=== PATIENT | male | born 1965 | race Caucasian/White ===

== ENCOUNTER 2016-11-15 14:55 | Observation (INO) | payer SELFPAY ==
--- NOTE | ~2016-11-15 | HP ---
History And Physical [id number] [place]. [address] NAME: PATRICK BARRIGA : 61 STATUS : ADM Braulio PAT#: [id number] AGE: 50 ADM/REG DATE : 11/15/16 MR#: [id number] REPORT SERV DATE: 11/16/16 DICTATED BY: LOVELY SLADE DATE: 11/16/16 REPORT STATUS : Draft TRANSCRIBED BY: MODL DATE: 11/16/16 DATE OF ADMISSION: 11/15/2016 CHIEF COMPLAINT: Chest pain. HISTORY OF PRESENT ILLNESS: This is a 50-year-old male with history of hypertension, untreated hyperlipidemia, obstructive sleep apnea, and bipolar disorder, who states a several week history of midsternal epigastric chest pain. He thought it was reflux at first and began taking Zantac with no specific relief. He states it feels like "someone grabbing me in my insides" with most intense spells lasting minutes to hours. There was no relation to exertion and it is not pleuritic in nature. The patient states the pain radiates "straight through to my back." He came to our emergency department for further evaluation around 1445 hours yesterday and was given a full dose aspirin and GI cocktail with no significant relief. He states the pain is typically at 2/10 in severity where it is now, but had a worse episode around 00:11 p.m. last night, where he states it was 10/10 in severity. This was mostly alleviated with IV morphine. The patient also did receive some nitroglycerin with no significant relief. The patient denies any recent fever, cough, or chill, but does states he was having some hot flashes yesterday. He also reports a dry cough that has been going on for several months and is nonproductive. He also states dizziness and unsteadiness with walking. Denies palpitations, lower extremity edema, or presyncope. PAST MEDICAL HISTORY: 1. 48-hour Holter monitor and echocardiogram performed in 2014 with symptoms of palpitations. Seen by Dr. Latif. Testing normal. 2. Hypertension. 3. Depression. 4. Obesity with BMI of 32. 5. Hypothyroidism. 6. GERD. 7. Asthma. 8. Bipolar disorder, under the care of Dr. Piña at [facility]. 9. Obstructive sleep apnea, compliant with CPAP therapy. 10.Hyperlipidemia, not currently treated. SURGICAL HISTORY: Laparoscopic cholecystectomy in 1994, appendectomy in 1999, left knee scope in , tonsillectomy as a child. HOME MEDICATIONS: Albuterol 2 puffs inhaled q.4h p.r.n., Celexa 20 mg daily, hydrochlorothiazide 25 mg daily, Lamictal 150 b.i.d., levothyroxine 100 mcg daily, lisinopril 20 daily, Aleve 440 mg daily p.r.n. pain, Zantac 300 at bedtime, trazodone 300 at bedtime. ALLERGIES: TO COMPAZINE CAUSES SEIZURES AND SHAKING, REGLAN CAUSES TACHYCARDIA. SOCIAL HISTORY: The patient is currently from his and lives with his parents History And Physical [address] [address] NAME: PATRICK BARRIGA : [birth year] STATUS : ADM Braulio PAT#: [id number] AGE: 50 ADM/REG DATE : 11/15/16 MR#: [id number] REPORT SERV DATE: 11/16/16 DICTATED BY: LOVELY SLADE DATE: 11/16/16 REPORT STATUS : Draft TRANSCRIBED BY: ALEXIS DATE: 11/16/16 in [facility]. He is currently unemployed, formerly employed at [employer]. Denies history of smoking, alcohol use, or illicit drug use. FAMILY HISTORY: Negative for premature cardiovascular disease among his first degree relatives. REVIEW OF SYSTEMS: The patient also states several week history of dyspnea on exertion. No orthopnea or PND. All other review of systems negative except as indicated above. PHYSICAL EXAMINATION: VITAL SIGNS: Blood pressure 138/80, heart rate 70, temperature 98.2, pulse oximetry 94% room air, BMI 32.4. GENERAL: Well developed, well nourished, in no acute distress HEENT: Anicteric. Normal EOM. Head normocephalic. PERRLA, no xanthelasma. NECK: Supple. No JVD. Carotids normal without bruits. LUNGS: Clear to auscultation bilaterally anterior and posterior. Respirations even and unlabored. CARDIAC: S1, S2 regular rate and rhythm. No murmurs, rubs, or gallops. No chest wall tenderness. ABDOMEN: There is some discomfort to palpation to the epigastric area. Otherwise, abdomen is soft, and nontender with active bowel sounds. No organomegaly, abdominal bruits, or masses appreciated. EXTREMITIES: No peripheral edema. DP/PT and radial pulses palpable bilaterally. No clubbing or cyanosis. SKIN: Warm and dry. Normal turgor. No pallor or cyanosis. MUSCULOSKELETAL: Moving all extremities x4. Normal muscle strength. NEURO/PSYCH: Alert and oriented with appropriate affect. LABORATORY DATA: White blood count 6.2, hemoglobin 16.1, hematocrit 44.9. Sodium 139, potassium 3.5, BUN 18, creatinine 1.2. Troponin less than 0.02 x3 sets. EKGs interpreted by myself indicates normal sinus rhythm with possible inferior Q-waves on five separate EKGs. No significant change when compared to historic EKG from July 2016. Chest x-ray reveals no acute cardiopulmonary abnormalities. ASSESSMENT AND PLAN: 1. Substernal chest pain with also some epigastric qualities. Cardiovascular risk factors include hypertension and hyperlipidemia. He has been observed overnight in the Chest Pain Observation Unit and is negative for acute coronary syndrome. Recommend proceeding with a nuclear stress test today. If this is low risk, we will plan to discharge the patient home with a proton pump inhibitor and establish followup with [facility] if the patient does not currently have a primary care physician. Any indication of ischemia on stress testing, we will plan to have the patient follow up with Cardiology or proceed with cardiac catheterization. 2. Dizziness, the patient states unsteadiness with walking. This will be evaluated outpatient on treadmill for stress testing today. There were no events on tele suggestive of any arrhythmias. History And Physical [address] [address] NAME: PATRICK BARRIGA : 61 STATUS : ADM Braulio PAT#: [id number] AGE: 50 ADM/REG DATE : 11/15/16 MR#: [id number] REPORT SERV DATE: 11/16/16 DICTATED BY: LOVELY SLADE DATE: 11/16/16 REPORT STATUS : Draft TRANSCRIBED BY: ALEXIS DATE: 11/16/16 3. Hypertension with history of three to four month cough, that is dry. The patient is on lisinopril at the time that he was started unless may correlate with his symptoms. We will discontinue this on discharge and change him to losartan 50 mg daily. 4. Mixed hyperlipidemia. Follow up with primary care physician. 5. Gastroesophageal reflux disease. Plan to start on PPI on discharge. 6. Hypothyroidism. We will check a TSH and T4 since he is on replacement therapy and has been having some dizziness. LILLIE/ALEXIS Lovely Slade NP / [id number] CC: Carol Ann Fortune, MSN, DOCUMENT DESIGN SPECIALIST-BC
[~2016-11-15 14:55] MED LIST: ABILIFY20 MG PO; ASAB PO; EPITOL200 MG PO; LAMICTAL200 MG PO; LOP25 PO; PRILOSEC40 MG PO; PRIN10 PO; PROAIR HFA INH; SEROQUEL200 MG PO; SEROQUEL300 MG PO; SYN075 PO; TRAZODONE150 MG PO; VENTOLIN HFA INH; ZESTRIL10 MG PO
[2016-11-15 15:40] LABS: BASOPHILS 0.3 %; BASOPHILS ABSOLUTE 0.02 10/3/uL (0.0-0.16); EOSINOPHILS 0.6 %; EOSINOPHILS ABSOLUTE 0.04 10/3/uL (0.0-0.53); ER CBC TAT 0 Hrs 08 Mins; HEMATOCRIT 44.9 % (40.0-51.0); HEMOGLOBIN 16.1 g/dL (13.6-17.8); IMMATURE GRANULOCYTES 0.2 %; IMMATURE GRANULOCYTES ABSOLUTE 0.01 10/3/uL (0.0-0.11); LYMPHOCYTES 27.1 %; LYMPHOCYTES ABSOLUTE 1.68 10/3/uL (0.67-4.30); MEAN CORPUSCULAR HEMOGLOB 31.8 pg (26.0-34.0); MEAN CORPUSCULAR VOLUME 88.6 fL (80-100); MEAN PLATELET VOLUME 9.6 fL (9.2-13.0); MONOCYTES 12.7 %; MONOCYTES ABSOLUTE 0.79 10/3/uL (0.21-1.20); NEUTROPHILS 59.1 %; NEUTROPHILS ABSOLUTE 3.66 10/3/uL (2.02-8.40); PLATELET COUNT 195 10/3/uL (150-400); RBC DISTRIBUTION WIDTH 12.8 % (12.0-16.0); RED CELL COUNT 5.07 10/6/uL (4.7-6.1); WHITE BLOOD CELLS 6.2 10/3/uL (4.5-10.5)
[2016-11-15 15:42] LABS: MANUAL DIFF NO %; MEAN CORPUS HGB CONC 35.9 g/dL (32.0-36.0)
[2016-11-15 15:51] LABS: PARTIAL THROMBO TIME 29.5 SEC (22.5-37.2)
[2016-11-15 15:53] LABS: INTERNATIONAL NORMAL RATI 1.1 UNITS (-); PROTIME (NOT ORD) 13.9 SEC (12.0-14.5)
[2016-11-15 15:56] LABS: CALCIUM, SERUM 9.4 MG/DL (8.5-10.4); CHEST PAIN PROFILE TAT 0 Hrs 24 Mins; CHLORIDE, SERUM 103 MMOL/L (96-112); CO2 (CARBON DIOXIDE) 26 MMOL/L (24-34); GFR AFRICAN AMERICAN 80 ML/MIN (>=60); GFR NON AFRICAN AMERICAN 69 ML/MIN (>=60); POTASSIUM, SERUM 3.5 MMOL/L (3.5-5.3); SODIUM, SERUM 139 MMOL/L (135-148); TROPONIN I <0.02 NG/ML (<0.05)
[2016-11-15 15:57] LABS: BUN (BLOOD UREA NITROGEN) 18 MG/DL (6-23); GLUCOSE, SERUM 101 MG/DL (60-99)
[2016-11-15] MEDS ORDERED: TRAZODONE300 MG PO (19:33)
[2016-11-15] MEDS ORDERED: PRIN20 PO (19:34)
[2016-11-15] MEDS ORDERED: LEVOTHYROXIN100 MCG PO (19:34)
[2016-11-15] MEDS ORDERED: CELEXA20 PO (19:34)
[2016-11-15] MEDS ORDERED: HYDROCHLOROT25 MG PO (19:34)
[2016-11-15] MEDS ORDERED: LAMICTAL150 MG PO (19:34)
[2016-11-15] MEDS ORDERED: PROVHFA INH (19:35)
[2016-11-15] MEDS ORDERED: ALEVE220 MG PO (19:35)
[2016-11-15] MEDS ORDERED: ZANTAC300 MG PO (19:35)
[2016-11-16 01:02] LABS: TROPONIN I <0.02 NG/ML (<0.05)
[2016-11-16 10:57] LABS: T4 (THYROXINE) TOTAL 10.7 MCG/DL (4.5-12.0)
[2016-11-17 04:26] LABS: BASOPHILS 0.4 %; BASOPHILS ABSOLUTE 0.02 10/3/uL (0.0-0.16); EOSINOPHILS 1.6 %; EOSINOPHILS ABSOLUTE 0.08 10/3/uL (0.0-0.53); HEMATOCRIT 41.5 % (40.0-51.0); HEMOGLOBIN 14.6 g/dL (13.6-17.8); IMMATURE GRANULOCYTES 0.2 %; IMMATURE GRANULOCYTES ABSOLUTE 0.01 10/3/uL (0.0-0.11); LYMPHOCYTES 40.5 %; LYMPHOCYTES ABSOLUTE 2.07 10/3/uL (0.67-4.30); MANUAL DIFF NO %; MEAN CORPUS HGB CONC 35.2 g/dL (32.0-36.0); MEAN CORPUSCULAR HEMOGLOB 31.9 pg (26.0-34.0); MEAN CORPUSCULAR VOLUME 90.8 fL (80-100); MEAN PLATELET VOLUME 9.5 fL (9.2-13.0); MONOCYTES 11.7 %; NEUTROPHILS 45.6 %; NEUTROPHILS ABSOLUTE 2.33 10/3/uL (2.02-8.40); PLATELET COUNT 178 10/3/uL (150-400); RBC DISTRIBUTION WIDTH 12.5 % (12.0-16.0); RED CELL COUNT 4.57 10/6/uL (4.7-6.1); WHITE BLOOD CELLS 5.1 10/3/uL (4.5-10.5)
[2016-11-17 04:44] LABS: BUN (BLOOD UREA NITROGEN) 13 MG/DL (6-23); CALCIUM, SERUM 8.6 MG/DL (8.5-10.4); CHLORIDE, SERUM 104 MMOL/L (96-112); CHOL/HDL RATIO(NOT ORDER) 7.3 (0-5); CHOLESTEROL 198 MG/DL (< 200); CO2 (CARBON DIOXIDE) 28 MMOL/L (24-34); CREATININE 0.93 MG/DL (0.70-1.30); GFR AFRICAN AMERICAN 109 ML/MIN (>=60); GFR NON AFRICAN AMERICAN 94 ML/MIN (>=60); GLUCOSE, SERUM 100 MG/DL (60-99); HDL CHOLESTEROL 27 MG/DL (> 39); LDL CHOLESTEROL 123 MG/DL (< 130); NON-HDL CHOLESTEROL 171 MG/DL (< 160); POTASSIUM, SERUM 3.7 MMOL/L (3.5-5.3); SODIUM, SERUM 141 MMOL/L (135-148); TRIGLYCERIDE 242 MG/DL (< 150)
[2016-11-17] MEDS ORDERED: COZ50 (17:59)
[2016-11-17] MEDS ORDERED: PRILO PO (18:00)
== END 2016-11-17 20:35 | disposition home or self-care (01) ==
LOC: ER 14:55 → CDU1 20:39
PROVIDERS: Clinical Nurse Specialist; Emergency Medicine; Nurse Practitioner
DX: R07.2 Precordial pain (principal); R42 Dizziness and giddiness; I10 Essential (primary) hypertension; G47.33 Obstructive sleep apnea (adult) (pediatric); F32.9 Major depressive disorder, single episode, unspecified; E78.2 Mixed hyperlipidemia; K21.9 Gastro-esophageal reflux disease without esophagitis; J45.909 Unspecified asthma, uncomplicated; F31.9 Bipolar disorder, unspecified; Z90.49 Acquired absence of other specified parts of digestive tract; Z90.89 Acquired absence of other organs; E03.9 Hypothyroidism, unspecified; Z99.81 Dependence on supplemental oxygen; Z88.8 Allergy status to other drugs, medicaments and biological substances
CPT/HCPCS: 71020; 78452; 80048; 80061; 83735; 84436; 84443; 84484; 85025; 85610; 85730; 93005; 93017; 93458; 94640; 96374; 96375; 96376; 99152; 99153; 99285; A9270-GY; A9502; C1769; C1887; C1894; G0378; J2250; J2405; J3010; Q9967